=== PATIENT | female | born 1945 | race Caucasian/White ===

== ENCOUNTER 2021-04-05 18:06 | Inpatient (IN) ==
[2021-04-05] MEDS ORDERED: PANTOPRAZOLE 40 MG VIAL IV STA (22:22)
[2021-04-05 23:26] LABS: Basophils % 0.3 % (0.0-0.8); Eosinophils # 0.3 10*3/uL (0.0-0.87); Eosinophils % 2.1 % (0.00-10.9); Hematocrit 41.3 VOL% (35.7-47.0); Hemoglobin 13.5 GM/DL (12.0-16.0); Immature Granulocytes % 0.5 %; Immature Granulocytes Absolute 0.06 #; Lymphocytes # 3.9 10*3/uL (1.4-4.0); Lymphocytes % 29.3 % (21.3-54.2); Mean Corpuscular HGB Conc 32.7 GM/DL (32-36); Mean Corpuscular Volume 93.4 FL (87-102); Mean Platelet Volume 10.3 FL (9.6-12.0); Neutrophils % 58.8 % (38.7-73.9); Platelet Count 206 T/CUMM (130-400); Red Blood Count 4.42 MC/CUMM (3.8-5.5); Red Cell Distribution Width 13.2 % (9.3-17.3); White Blood Count 13.2 T/CUMM (4-12)
[2021-04-05 23:40] LABS: PT Patient Result 11.3 SECS (10.5-12.0)
[2021-04-05 23:53] LABS: Albumin 3.2 G/DL (3.4-5.0); Bilirubin,Total 0.4 MG/DL (0.20-1.00); Calcium 9.2 MG/DL (8.5-10.1); Osmolality,Calculated 283.3 MOS/KG (273-304); Potassium 4.6 MMOL/L (3.5-5.1); Total Protein 6.7 G/DL (6.4-8.2)
[2021-04-06 00:40] LABS: Bacteria,Urine Occasional /HPF (Few); Bilirubin,Urine Negative (Negative); Blood, Urine Moderate mg/dL (Negative); Glucose,Urine (UA) Negative (Negative); Ketones,Urine Negative (Negative); Mucus,Urine Occasional /LPF (Occasional); Nitrite,Urine Negative (Negative); Protein,Urine Negative; RBC,Urine 2 /HPF (0-4); Squamous Epithelial Cell,Urine Occasional /HPF (0-10); Urine Appearance Slightly Hazy (Clear); Urine Color Yellow (Yellow); Urine Specific Gravity 1.021 (1.001-1.035); Urine Urobilinogen < 2.0 EU/DL (0.2-1.0)
[2021-04-06] MEDS ORDERED: ACETAMINOPHEN 325 MG TABLET PO PRN (01:27)
[2021-04-06] MEDS ORDERED: DEXTROSE 50% 25 GM/50 ML VIAL IV PRN (01:27)
[2021-04-06] MEDS ORDERED: GLUCAGON 1 MG VIAL IM PRN (01:27)
[2021-04-06] MEDS ORDERED: QUEtiapine 25 MG TABLET PO STA (02:08)
[2021-04-06] MEDS ORDERED: QUEtiapine 100 MG TABLET PO STA (02:13)
[2021-04-06] MEDS ORDERED: QUEtiapine 100 MG TABLET ONE (02:14)
[2021-04-06 06:39] LABS: Basophils % 0.2 % (0.0-0.8); Eosinophils # 0.2 10*3/uL (0.0-0.87); Eosinophils % 2.5 % (0.00-10.9); Hemoglobin 12.8 GM/DL (12.0-16.0); Immature Granulocytes % 0.5 %; Immature Granulocytes Absolute 0.05 #; Lymphocytes # 2.5 10*3/uL (1.4-4.0); Lymphocytes % 26.4 % (21.3-54.2); Mean Corpuscular Volume 94.6 FL (87-102); Mean Platelet Volume 9.9 FL (9.6-12.0); Monocytes % 9.8 % (1.7-12.7); Neutrophils % 60.6 % (38.7-73.9); Platelet Count 190 T/CUMM (130-400); Red Blood Count 4.23 MC/CUMM (3.8-5.5); Red Cell Distribution Width 13.2 % (9.3-17.3); White Blood Count 9.4 T/CUMM (4-12)
[2021-04-06 06:58] LABS: Albumin 2.9 G/DL (3.4-5.0); Bilirubin,Total 0.4 MG/DL (0.20-1.00); Calcium 9.3 MG/DL (8.5-10.1); Osmolality,Calculated 285.1 MOS/KG (273-304); Potassium 4.1 MMOL/L (3.5-5.1); Total Protein 6.5 G/DL (6.4-8.2)
[2021-04-06] MEDS ORDERED: PANTOPRAZOLE 40 MG TABLET PO SCH (09:00)
[2021-04-06] MEDS: PANTOPRAZOLE 40 MG VIAL IV SCH ×2 (09:24→21:43)
[2021-04-06 13:46] LABS: Hematocrit 39.3 VOL% (35.7-47.0); Hemoglobin 12.9 GM/DL (12.0-16.0)
[2021-04-06] MEDS ORDERED: POLYVINYL ALCOHOL 1.4% OPH SOLN 15 ML BOTTLE BOTH EYES PRN (14:42)
[2021-04-06 18:41] LABS: Hematocrit 40.3 VOL% (35.7-47.0); Hemoglobin 13.2 GM/DL (12.0-16.0)
[2021-04-06] MEDS: SIMVASTATIN 20 MG TABLET PO SCH (20:58)
[2021-04-06] MEDS: QUEtiapine 25 MG TABLET PO SCH (20:58)
[2021-04-06] MEDS: DONEPEZIL 10 MG TABLET PO SCH (20:58)
[2021-04-06] MEDS: DESITIN 4OZ/NYSTATIN 15 GRAM MIXTURE PASTE TOP SCH (21:43)
[2021-04-07 01:45] LABS: Basophils # 0.1 10*3/uL (0.0-0.2); Basophils % 0.4 % (0.0-0.8); Eosinophils # 0.4 10*3/uL (0.0-0.87); Hematocrit 39.3 VOL% (35.7-47.0); Hemoglobin 12.7 GM/DL (12.0-16.0); Immature Granulocytes % 0.4 %; Immature Granulocytes Absolute 0.05 #; Lymphocytes # 3.4 10*3/uL (1.4-4.0); Lymphocytes % 28.8 % (21.3-54.2); Mean Corpuscular HGB Conc 32.3 GM/DL (32-36); Mean Corpuscular Volume 94.7 FL (87-102); Mean Platelet Volume 9.7 FL (9.6-12.0); Monocytes % 10.1 % (1.7-12.7); Neutrophils % 57.3 % (38.7-73.9); Platelet Count 185 T/CUMM (130-400); Red Blood Count 4.15 MC/CUMM (3.8-5.5); White Blood Count 11.8 T/CUMM (4-12)
[2021-04-07 01:49] LABS: Calcium 9.2 MG/DL (8.5-10.1); Osmolality,Calculated 279.4 MOS/KG (273-304); Potassium 3.8 MMOL/L (3.5-5.1)
[2021-04-07 07:56] LABS: Hematocrit 41.7 VOL% (35.7-47.0); Hemoglobin 13.9 GM/DL (12.0-16.0)
[2021-04-07] MEDS ORDERED: CHOLECALCIFEROL 5,000 UNIT TABLET PO SCH (09:00)
[2021-04-07] MEDS: CYANOCOBALAMIN 500 MCG TABLET PO SCH (09:08)
[2021-04-07] MEDS: MAGNESIUM OXIDE 400 MG TABLET PO SCH (09:08)
[2021-04-07] MEDS: MONTELUKAST 10 MG TABLET PO SCH (09:08)
[2021-04-07] MEDS: DESITIN 4OZ/NYSTATIN 15 GRAM MIXTURE PASTE TOP SCH ×3 (09:09→20:55)
[2021-04-07] MEDS: QUEtiapine 25 MG TABLET PO SCH ×2 (09:09→20:54)
[2021-04-07] MEDS: PANTOPRAZOLE 40 MG VIAL IV SCH (09:09)
[2021-04-07] MEDS: SERTRALINE 100 MG TABLET PO SCH (09:09)
[2021-04-07] MEDS: ALBUTEROL 2.5 MG/3 ML NEB RESP TX SCH (20:29)
[2021-04-07] MEDS: PANTOPRAZOLE 40 MG TABLET PO SCH (20:54)
[2021-04-07] MEDS: SIMVASTATIN 20 MG TABLET PO SCH (20:54)
[2021-04-07] MEDS: DONEPEZIL 10 MG TABLET PO SCH (20:54)
[2021-04-08 06:59] LABS: Basophils % 0.3 % (0.0-0.8); Eosinophils # 0.3 10*3/uL (0.0-0.87); Eosinophils % 2.6 % (0.00-10.9); Hematocrit 40.9 VOL% (35.7-47.0); Hemoglobin 13.4 GM/DL (12.0-16.0); Immature Granulocytes % 0.5 %; Immature Granulocytes Absolute 0.06 #; Lymphocytes # 2.8 10*3/uL (1.4-4.0); Lymphocytes % 23.4 % (21.3-54.2); Mean Corpuscular HGB Conc 32.8 GM/DL (32-36); Mean Corpuscular Volume 91.9 FL (87-102); Mean Platelet Volume 9.8 FL (9.6-12.0); Monocytes % 10.2 % (1.7-12.7); Platelet Count 203 T/CUMM (130-400); Red Blood Count 4.45 MC/CUMM (3.8-5.5); Red Cell Distribution Width 12.9 % (9.3-17.3); White Blood Count 11.8 T/CUMM (4-12)
[2021-04-08 07:23] LABS: Calcium 9.4 MG/DL (8.5-10.1); Osmolality,Calculated 276.5 MOS/KG (273-304); Potassium 3.9 MMOL/L (3.5-5.1)
[2021-04-08] MEDS: ALBUTEROL 2.5 MG/3 ML NEB RESP TX SCH ×2 (07:34→13:06)
[2021-04-08] MEDS: BUDESONIDE 0.25 MG/2 ML NEB RESP TX SCH (07:34)
[2021-04-08] MEDS: MAGNESIUM OXIDE 400 MG TABLET PO SCH (08:41)
[2021-04-08] MEDS: CYANOCOBALAMIN 500 MCG TABLET PO SCH (08:41)
[2021-04-08] MEDS: QUEtiapine 25 MG TABLET PO SCH ×2 (08:41→21:36)
[2021-04-08] MEDS: LOSARTAN 25 MG TABLET PO SCH (08:42)
[2021-04-08] MEDS: MONTELUKAST 10 MG TABLET PO SCH (08:42)
[2021-04-08] MEDS: PANTOPRAZOLE 40 MG TABLET PO SCH ×2 (08:42→21:36)
[2021-04-08] MEDS: SERTRALINE 100 MG TABLET PO SCH (08:42)
[2021-04-08] MEDS: DESITIN 4OZ/NYSTATIN 15 GRAM MIXTURE PASTE TOP SCH ×2 (09:00→21:36)
[2021-04-08] MEDS: SIMVASTATIN 20 MG TABLET PO SCH (21:36)
[2021-04-08] MEDS: DONEPEZIL 10 MG TABLET PO SCH (21:36)
[2021-04-09 07:17] LABS: Risk Ratio 3.8; VLDL Cholesterol 23.4 MG/DL
[2021-04-09] MEDS: BUDESONIDE 0.25 MG/2 ML NEB RESP TX SCH (07:25)
[2021-04-09] MEDS: ALBUTEROL 2.5 MG/3 ML NEB RESP TX SCH ×4 (07:25→19:40)
[2021-04-09] MEDS: LOSARTAN 25 MG TABLET PO SCH (10:01)
[2021-04-09] MEDS: QUEtiapine 25 MG TABLET PO SCH ×2 (10:01→20:53)
[2021-04-09] MEDS: CYANOCOBALAMIN 500 MCG TABLET PO SCH (10:01)
[2021-04-09] MEDS: MAGNESIUM OXIDE 400 MG TABLET PO SCH (10:01)
[2021-04-09] MEDS: MONTELUKAST 10 MG TABLET PO SCH (10:01)
[2021-04-09] MEDS: PANTOPRAZOLE 40 MG TABLET PO SCH ×2 (10:01→20:53)
[2021-04-09] MEDS: SERTRALINE 100 MG TABLET PO SCH (10:01)
[2021-04-09] MEDS: ASPIRIN EC 81 MG TABLET PO SCH (10:01)
[2021-04-09] MEDS: DESITIN 4OZ/NYSTATIN 15 GRAM MIXTURE PASTE TOP SCH ×2 (10:29→20:55)
[2021-04-09] MEDS: DONEPEZIL 10 MG TABLET PO SCH (20:54)
[2021-04-09] MEDS: SIMVASTATIN 20 MG TABLET PO SCH (20:54)
[2021-04-10] MEDS: BUDESONIDE 0.25 MG/2 ML NEB RESP TX SCH (07:09)
[2021-04-10] MEDS: ALBUTEROL 2.5 MG/3 ML NEB RESP TX SCH ×3 (07:09→20:30)
[2021-04-10] MEDS: QUEtiapine 25 MG TABLET PO SCH ×2 (08:26→21:27)
[2021-04-10] MEDS: CYANOCOBALAMIN 500 MCG TABLET PO SCH (08:26)
[2021-04-10] MEDS: DESITIN 4OZ/NYSTATIN 15 GRAM MIXTURE PASTE TOP SCH ×2 (08:27→21:22)
[2021-04-10] MEDS: PANTOPRAZOLE 40 MG TABLET PO SCH ×2 (08:27→21:27)
[2021-04-10] MEDS: ASPIRIN EC 81 MG TABLET PO SCH (08:27)
[2021-04-10] MEDS: LOSARTAN 25 MG TABLET PO SCH (08:27)
[2021-04-10] MEDS: MAGNESIUM OXIDE 400 MG TABLET PO SCH (08:27)
[2021-04-10] MEDS: MONTELUKAST 10 MG TABLET PO SCH (08:27)
[2021-04-10] MEDS: SERTRALINE 100 MG TABLET PO SCH (08:27)
[2021-04-10] MEDS: SIMVASTATIN 20 MG TABLET PO SCH (21:27)
[2021-04-10] MEDS: DONEPEZIL 10 MG TABLET PO SCH (21:28)
[2021-04-11 05:57] LABS: Calcium 9.6 MG/DL (8.5-10.1); Osmolality,Calculated 282.3 MOS/KG (273-304); Potassium 3.9 MMOL/L (3.5-5.1)
[2021-04-11] MEDS: ALBUTEROL 2.5 MG/3 ML NEB RESP TX SCH ×3 (08:50→20:18)
[2021-04-11] MEDS: PANTOPRAZOLE 40 MG TABLET PO SCH ×2 (10:18→21:04)
[2021-04-11] MEDS: MONTELUKAST 10 MG TABLET PO SCH (10:18)
[2021-04-11] MEDS: MAGNESIUM OXIDE 400 MG TABLET PO SCH (10:18)
[2021-04-11] MEDS: CYANOCOBALAMIN 500 MCG TABLET PO SCH (10:19)
[2021-04-11] MEDS: QUEtiapine 25 MG TABLET PO SCH ×2 (10:19→21:04)
[2021-04-11] MEDS: ASPIRIN EC 81 MG TABLET PO SCH (10:20)
[2021-04-11] MEDS: LOSARTAN 25 MG TABLET PO SCH (10:20)
[2021-04-11] MEDS: SERTRALINE 100 MG TABLET PO SCH (10:20)
[2021-04-11] MEDS: DESITIN 4OZ/NYSTATIN 15 GRAM MIXTURE PASTE TOP SCH ×2 (10:24→21:05)
[2021-04-11] MEDS: SIMVASTATIN 20 MG TABLET PO SCH (21:04)
[2021-04-11] MEDS: DONEPEZIL 10 MG TABLET PO SCH (21:04)
[2021-04-12] MEDS: ALBUTEROL 2.5 MG/3 ML NEB RESP TX SCH (07:30)
[2021-04-12] MEDS: BUDESONIDE 0.25 MG/2 ML NEB RESP TX SCH ×2 (07:30→08:40)
[2021-04-12] MEDS: MONTELUKAST 10 MG TABLET PO SCH (08:59)
[2021-04-12] MEDS: QUEtiapine 25 MG TABLET PO SCH (08:59)
[2021-04-12] MEDS: PANTOPRAZOLE 40 MG TABLET PO SCH (08:59)
[2021-04-12] MEDS: SERTRALINE 100 MG TABLET PO SCH (09:00)
[2021-04-12] MEDS: LOSARTAN 25 MG TABLET PO SCH (09:00)
[2021-04-12] MEDS: ASPIRIN EC 81 MG TABLET PO SCH (09:00)
[2021-04-12] MEDS: CYANOCOBALAMIN 500 MCG TABLET PO SCH (09:00)
[2021-04-12] MEDS: DESITIN 4OZ/NYSTATIN 15 GRAM MIXTURE PASTE TOP SCH (09:01)
[2021-04-12] MEDS: MAGNESIUM OXIDE 400 MG TABLET PO SCH (09:01)
[2021-04-12 11:15] VITALS: BP 142/69
== END 2021-04-12 15:01 | DRG 379 ==
LOC: N.EDINP 18:06 → N.ED 18:06 → N.TELES 04-06 04:38 → SUATTDRO 04-07 09:04
PROVIDERS: ADMIT Internal Medicine; ATTEND Internal Medicine Geriatric Medicine

== ENCOUNTER 2021-05-11 11:55 | Observation (INO) ==
[2021-05-11 15:44] LABS: Basophils % 0.3 % (0.0-0.8); Eosinophils # 0.2 10*3/uL (0.0-0.87); Eosinophils % 1.5 % (0.00-10.9); Hematocrit 46.4 VOL% (35.7-47.0); Hemoglobin 14.9 GM/DL (12.0-16.0); Immature Granulocytes % 0.4 %; Immature Granulocytes Absolute 0.05 #; Lymphocytes # 3.1 10*3/uL (1.4-4.0); Lymphocytes % 25.5 % (21.3-54.2); Mean Corpuscular HGB Conc 32.1 GM/DL (32-36); Mean Corpuscular Volume 94.3 FL (87-102); Mean Platelet Volume 10.2 FL (9.6-12.0); Monocytes % 5.7 % (1.7-12.7); Neutrophils % 66.6 % (38.7-73.9); Platelet Count 233 T/CUMM (130-400); Red Blood Count 4.92 MC/CUMM (3.8-5.5); Red Cell Distribution Width 13.2 % (9.3-17.3)
[2021-05-11 15:54] LABS: PT Patient Result 11.3 SECS (10.5-12.0); Partial Thromboplastin Time 27.3 SECS (23.8-32.1)
[2021-05-11 16:02] LABS: Albumin 3.4 G/DL (3.4-5.0); Bilirubin,Total 0.4 MG/DL (0.20-1.00); Calcium 10.1 MG/DL (8.5-10.1); Osmolality,Calculated 278.4 MOS/KG (273-304); Potassium 4.3 MMOL/L (3.5-5.1); Total Protein 7.7 G/DL (6.4-8.2)
[2021-05-11] MEDS ORDERED: PANTOPRAZOLE 40 MG VIAL IV STA (18:04)
[2021-05-11] MEDS ORDERED: ACETAMINOPHEN 325 MG TABLET PO PRN (19:20)
[2021-05-11] MEDS ORDERED: DOCUSATE SODIUM 100 MG CAPSULE PO PRN (19:20)
[2021-05-11] MEDS ORDERED: CALCIUM CARBONATE CHEW 500 MG TABLET PO PRN (19:20)
[2021-05-11] MEDS ORDERED: ONDANSETRON 4 MG/2 ML VIAL IV PRN (19:20)
[2021-05-11] MEDS ORDERED: SIMVASTATIN 20 MG TABLET PO SCH (20:00)
[2021-05-11] MEDS ORDERED: MAGNESIUM OXIDE 400 MG TABLET PO SCH (20:00)
[2021-05-11 20:20] LABS: Bacteria,Urine Many /HPF (Few); Bilirubin,Urine Negative (Negative); Blood, Urine Small mg/dL (Negative); Glucose,Urine (UA) Negative (Negative); Ketones,Urine Negative (Negative); Mucus,Urine Occasional /LPF (Occasional); Nitrite,Urine Negative (Negative); Protein,Urine Negative; RBC,Urine 2 /HPF (0-4); Squamous Epithelial Cell,Urine Occasional /HPF (0-10); Urine Appearance CLEAR (Clear); Urine Color Yellow (Yellow); Urine Urobilinogen < 2.0 EU/DL (<2.0)
[2021-05-11] MEDS: ALBUTEROL 2.5 MG/3 ML NEB RESP TX SCH (20:50)
[2021-05-11] MEDS: FAMOTIDINE 20 MG TABLET PO SCH (21:09)
[2021-05-11] MEDS: QUEtiapine 100 MG TABLET PO SCH (21:09)
[2021-05-11] MEDS ORDERED: cefTRIAXone 1,000 MG in SODIUM CHLORIDE 0.9% 100 ML IV SCH (21:30)
[2021-05-12 06:00] LABS: Basophils % 0.4 % (0.0-0.8); Eosinophils # 0.3 10*3/uL (0.0-0.87); Eosinophils % 2.3 % (0.00-10.9); Hematocrit 41.8 VOL% (35.7-47.0); Hemoglobin 13.6 GM/DL (12.0-16.0); Immature Granulocytes % 0.2 %; Immature Granulocytes Absolute 0.02 #; Lymphocytes # 2.9 10*3/uL (1.4-4.0); Lymphocytes % 26.2 % (21.3-54.2); Mean Corpuscular HGB Conc 32.5 GM/DL (32-36); Mean Corpuscular Volume 94.1 FL (87-102); Mean Platelet Volume 10.1 FL (9.6-12.0); Monocytes % 8.8 % (1.7-12.7); Neutrophils % 62.1 % (38.7-73.9); Platelet Count 204 T/CUMM (130-400); Red Blood Count 4.44 MC/CUMM (3.8-5.5); Red Cell Distribution Width 13.2 % (9.3-17.3); White Blood Count 10.9 T/CUMM (4-12)
[2021-05-12] MEDS: ALBUTEROL 2.5 MG/3 ML NEB RESP TX SCH (07:27)
[2021-05-12] MEDS: FAMOTIDINE 20 MG TABLET PO SCH (07:55)
[2021-05-12] MEDS: QUEtiapine 100 MG TABLET PO SCH (07:56)
[2021-05-12] MEDS ORDERED: SERTRALINE 100 MG TABLET PO SCH (08:00)
[2021-05-12] MEDS ORDERED: CHOLECALCIFEROL 5,000 UNIT TABLET PO SCH (08:00)
[2021-05-12] MEDS ORDERED: BUDESONIDE 0.25 MG/2 ML NEB RESP TX SCH (08:00)
[2021-05-12] MEDS ORDERED: CRANBERRY FRUIT 250 MG PO SCH (08:00)
[2021-05-12] MEDS ORDERED: CYANOCOBALAMIN 500 MCG TABLET PO SCH (08:00)
[2021-05-12] MEDS ORDERED: LOSARTAN 50 MG TABLET PO SCH (08:00)
[2021-05-12] MEDS ORDERED: LORATADINE 10 MG TABLET PO SCH (08:00)
[2021-05-12] MEDS ORDERED: MONTELUKAST 10 MG TABLET PO SCH (08:00)
[2021-05-12] MEDS ORDERED: DONEPEZIL 10 MG TABLET PO SCH (08:00)
[2021-05-12 12:16] VITALS: BP 150/59
== END 2021-05-12 13:33 | disposition home or self-care (01) ==
LOC: N.5E 11:55 → N.ED 11:55 → N.5E 22:15
PROVIDERS: ADMIT Internal Medicine; ATTEND Internal Medicine